=== PATIENT | male | born 1960 | race Caucasian/White ===

== ENCOUNTER → 2019-05-06 08:05 | Outpatient (CLI) | payer OTHER, SELFPAY ==
[2019-05-06 07:30] VITALS: BMI 38.9
--- NOTE | 2019-05-06 08:05 | LES_PTH ---
PATIENT: ARON GILMORE LOC: [facility] U#:[id number] AGE/SX: 64/M ROOM: RE05/06/[address]: Dr. Kendall Cao MD : 1960 BED: DIS: SPEC #: [id number] RECD: 05/08/19 07:45 STATUS: AYLA GRISELDA #: [id number] OLAMIDE: 05/06/19 08:[address]: Kendall Cao DEPT: SURGICAL PATHOLOGY RECD BY: Alex Meyer ENTERED: 05/08/19 09:31 SP TYPE: Lesion OTHR DR: Dr. Etienne Kebede III, MD Tissues: Skin of head, NOS Procedures: Surgery Specimen Level IV HEADER OPERATION: Excision skin lesion left temporal region PRE-OP DIAGNOSIS: Skin lesion TISSUE SUBMITTED: Skin lesion left temporal region MICROSCOPIC DIAGNOSIS Skin lesion left temporal region, excisional biopsy: Basal cell carcinoma, nodular type, with focal ulceration and associated inflammation (0.6 cm in greatest dimension), completely excised in the planes of sections examined. Solar elastosis. CELSO:kelvin 05/09/19 COMMENT Case has been reviewed in consultation with Dr. Anderson who concurs with the above diagnosis. IDC:AM MICROSCOPIC DESCRIPTION Slides are reviewed. GROSS DESCRIPTION Received in fixative is one container labeled with the patient's name and designated skin lesion left temporal region. The specimen consists of a arriaga-white skin ellipse measuring 1.5 x 0.8 cm and up to 0.3 cm in thickness. The specimen is inked, serially sectioned and submitted entirely in one cassette. / CELSO:kelvin 05/08/19 TC:0 CPT: 56609
== END ==
PROVIDERS: Family Provider Family Medicine; PCP Family Medicine; Referring Provider Surgery; Visit Provider Surgery
DX: L98.8 Other specified disorders of the skin and subcutaneous tissue (principal)
CPT/HCPCS: 88305

== ENCOUNTER 2022-02-01 11:41 | Inpatient (IN) | payer OTHER, SELFPAY ==
[2022-02-01] VITALS (12 sets, daily range): BP systolic 126–181; BP diastolic 72–106; PULSE 67–96; RESP 14–24; TEMP 36.2–37.9; O2SAT 93–95; BMI 40.1; BMI 39.2
--- NOTE | 2022-02-01 11:49 | RAD_ITS ---
EXAM: XR CHEST, 1 VIEW CLINICAL INDICATION: Neuro deficit, acute, stroke suspected TECHNIQUE: Frontal view of the chest. This report was created using [employer] report generation technology. COMPARISON: None. FINDINGS: LUNGS AND PLEURAL SPACES: Normal. No consolidation or edema. No pneumothorax. No effusion. HEART: Normal heart size. MEDIASTINUM: Central airways and mediastinal contour are unremarkable. BONES/JOINTS: Normal. SOFT TISSUES: Normal. RAD/Chest 1 View IMPRESSION: No acute cardiopulmonary disease. Electronically Signed: Jose Maria Shields MD at 14:14 EDT ,
--- NOTE | 2022-02-01 11:49 | CT_ITS ---
We are attempting to reach an attending provider to discuss findings. An addendum with communication details will be sent when the communication is complete. EXAM: CT HEAD WITHOUT INTRAVENOUS CONTRAST CLINICAL INDICATION: Neuro deficit, acute, stroke suspected TECHNIQUE: Multiple axial images were obtained of the head without intravenous contrast. This CT exam was performed using one or more of the following dose reduction techniques: automated exposure control, adjustment of the mA and/or kV according to patient size, and/or use of iterative reconstruction technique. This report was created using [employer] report [employer] technology. COMPARISON: None. FINDINGS: BRAIN AND EXTRA-AXIAL SPACES: Normal. No intra- or extra-axial hemorrhage. No evidence of acute infarct. No intracranial mass or mass effect. There is preservation of the [place]/white matter interface. Posterior fossa structures are unremarkable. Ventricles are appropriate for age. No hydrocephalus. Basal cisterns are patent. BONES/JOINTS: Normal. No discrete lytic or blastic abnormalities. SINUSES: Mucosal thickening of the paranasal sinuses noted. MASTOID AIR CELLS: Normal. Clear. ORBITS: Visualized globes, extraocular muscles, optic nerves and retrobulbar fat appear unremarkable. CT/STROKE Brain/Head without Cont IMPRESSION: No acute intracranial abnormality. Aspect score 10 Electronically Signed: Jose Maria Shields MD at 12:02 EDT ,
--- NOTE | 2022-02-01 11:49 | CT_ITS ---
EXAM: CT ANGIOGRAPHY HEAD AND NECK WITH INTRAVENOUS CONTRAST CLINICAL INDICATION: Neuro deficit, acute, stroke suspected TECHNIQUE: [place]/head and neck CT angiography protocol performed with intravenous contrast. This CT exam was performed using one or more of the following dose reduction techniques: automated exposure control, adjustment of the mA and/or kV according to patient size, and/or use of iterative reconstruction technique. This report was created using [employer] report generation technology. MIP reconstructed images were created and reviewed. CONTRAST: IV 100mL [id number] COMPARISON: None. FINDINGS: HEAD: RIGHT ANTERIOR CEREBRAL ARTERY: Normal. No significant stenosis at the visualized segments. Anterior communicating artery is present. No aneurysm. RIGHT MIDDLE CEREBRAL ARTERY: Normal. No significant stenosis at the visualized segments. No aneurysm. RIGHT POSTERIOR CEREBRAL ARTERY: Normal. No occlusion or significant stenosis. No aneurysm. RIGHT INTRACRANIAL INTERNAL CAROTID ARTERY: Normal. No significant stenosis. No dissection or occlusion. RIGHT INTRACRANIAL VERTEBRAL ARTERY: Normal. No significant stenosis. No dissection or occlusion. LEFT ANTERIOR CEREBRAL ARTERY: Normal. No significant stenosis at the visualized segments. No aneurysm. LEFT MIDDLE CEREBRAL ARTERY: Normal. No significant stenosis at the visualized segments. No aneurysm. LEFT POSTERIOR CEREBRAL ARTERY: Normal. No occlusion or significant stenosis. No aneurysm. LEFT INTRACRANIAL INTERNAL CAROTID ARTERY: Normal. No significant stenosis. No dissection or occlusion. LEFT INTRACRANIAL VERTEBRAL ARTERY: Normal. No significant stenosis. No dissection or occlusion. BASILAR ARTERY: Normal. No significant stenosis. No aneurysm. OTHER VASCULATURE: No vascular malformation. NECK: RIGHT COMMON CAROTID ARTERY: Normal. No significant stenosis. No dissection or occlusion. RIGHT EXTRACRANIAL INTERNAL CAROTID ARTERY: Normal. No significant stenosis. No dissection or occlusion. RIGHT EXTERNAL CAROTID ARTERY: Normal. No occlusion. RIGHT EXTRACRANIAL VERTEBRAL ARTERY: Normal. No significant stenosis. No dissection or occlusion. LEFT COMMON CAROTID ARTERY: Normal. No significant stenosis. No dissection or occlusion. LEFT EXTRACRANIAL INTERNAL CAROTID ARTERY: Normal. No significant stenosis. No dissection or occlusion. LEFT EXTERNAL CAROTID ARTERY: Normal. No occlusion. LEFT EXTRACRANIAL VERTEBRAL ARTERY: Normal. No significant stenosis. No dissection or occlusion. GREAT VESSELS OF AORTIC ARCH: Unremarkable as visualized. Normal anatomy, patent. LUNG APICES: Unremarkable as visualized. HEAD and NECK: BONES/JOINTS: Normal. No discrete lytic or blastic abnormalities. SOFT TISSUES: Normal. CAROTID STENOSIS REFERENCE USING NASCET CRITERIA: % ICA stenosis = (1 - narrowest ICA diameter/diameter of distal cervical ICA) x 100. Mild - <50% stenosis. Moderate - 50-69% stenosis. Severe - 70-94% stenosis. Near occlusion - 95-99% stenosis. Occluded - 100% stenosis. CT/STROKE CTA Head AND Neck W/Con IMPRESSION: Negative CTA carotid and CTA brain. N.B. : The above Results were Read Back by Jose Maria Shields MD to Alex Cortes DO, DO, and understanding confirmed on 02/01/2022 12:18:06 (ET). Electronically Signed: Jose Maria Shields MD at 12:18 EDT ,
--- NOTE | 2022-02-01 11:49 | EKG12_ITS ---
Test Reason : stroke Blood Pressure : / mmHG Vent. Rate : 094 BPM Atrial Rate : 094 BPM P-R Int : 116 ms QRS Dur : 094 ms QT Int : 358 ms P-R-T Axes : 038 -63 049 degrees QTc Int : 447 ms Normal sinus rhythm Left anterior fascicular block Abnormal ECG Confirmed by GISELLE BELTRE, ROBERT ([id number]), assistant film editor ALEIDA HERNANDEZ ([id number]) on 02/03/2022 9:09:49 AM Referred By: Confirmed By:ROBERT DESAI MD
--- NOTE | 2022-02-01 11:50 | EDS_ITS ---
HPI History of Present Illness Chief Complaint: Neuro S/Sx Detail of Chief Complaint: Blurred vision and feeling off balance Informant: patient Narrative Narrative: Patient presents to the emergency department with complaint of not feeling well since he woke up at 8 AM. Patient states that he woke up and his vision was blurry. Patient also feels off balance. He denies headache. He went to bed feeling fine. Patient states he can see clearly with each eye individually but when he looks with both eyes it is blurry. Patient has never had symptoms like this before. He denies recent illness. He does have history of hypertension. Patient denies weakness in extremities. He denies paresthesias. He denies chest pain. He denies difficulty with speech. Prior similar symptoms: No PFSH PFSH Medical History (Updated 02/01/22 @ 14:[address] Alex Cortes DO) Acid reflux Back problem Basal cell carcinoma Hypertension Skin lesion Home Medications amlodipine 10 mg tablet 10 mg PO DAILY #90 tabs 04/28/19 [History Last Taken Unknown] aspirin 81 mg tablet,delayed release (Adult Low Dose Aspirin) 81 mg PO DAILY 04/28/19 [History Last Taken Unknown] hydrochlorothiazide 12.5 mg capsule 12.5 mg PO DAILY #90 caps 04/28/19 [History Last Taken Unknown] metoprolol succinate 100 mg tablet,extended release 24 hr 100 mg PO DAILY #90 tabs 04/28/19 [History Last Taken Unknown] multivitamin 1 tab PO DAILY 04/28/19 [History Last Taken Unknown] omeprazole 20 mg capsule,delayed release 20 mg PO DAILY #90 caps 04/28/19 [History Last Taken Unknown] Allergy/AdvReac Type Severity Reaction Status Date / Time lisinopril AdvReac Mild Unknown Verified 05/12/19 08:17 clonazepam [From Klonopin] AdvReac Other Verified 02/01/22 11:46 Family History Mother Breast cancer Brother Testicular cancer Father Diabetes Hypertension Surgical History Hx of basal cell carcinoma excision Hx of cholecystectomy Hx of colonoscopy Hx of melanoma excision Hx of squamous cell carcinoma excision Social History (Updated 05/26/19 @ 11:[address] Kendall Cao MD) Smoking Status: Former smoker second hand exposure: No alcohol intake: never substance use type: does not use caffeine: Yes what type of physical activity do you participate in: none frequency: does not exercise ROS ROS ED Review of Systems ROS Unobtainable: other Constitutional Constitutional ED: Reports lethargy; Denies chills, fever(s), sweats or weight loss Eyes Eyes: Reports blurry vision and change in vision; Denies diplopia ENT ENT ED: Denies rhinorrhea or sore throat Cardiovascular Cardiovascular: Reports chest pain and racing heartbeat; Denies orthopnea Respiratory/Chest Respiratory/Chest: Reports dyspnea and dyspnea on exertion; Denies cough, orthopnea or sputum Gastrointestinal Gastrointestinal: Denies abdominal pain, diarrhea, nausea or vomiting Genitourinary Genitourinary ED: Denies dysuria, hematuria or urinary frequency Musculoskeletal Musculoskeletal: Denies arthralgias, back pain, myalgias or neck pain Integumentary Denies abscess, Abrasions or rash Neurologic Neurologic: Reports other Details: Feeling off balance ; Denies headache(s) or weakness Psychiatric Psychiatric: Denies anxiety, depression or suicidal thoughts Endocrine Endocrinology: Denies polydipsia, polyphagia or polyuria Hematologic/Lymphatic Hematologic/Lymphatic: Denies easy bleeding, easy bruising or lymphadenopathy Allergic/Immunologic Allergic/Immunologic ED: Denies mouth swelling, tongue swelling or urticaria EXAM Physical Exam Const Vital Signs: 02/01/22 11:42 02/01/22 11:53 02/01/22 11:49 Temperature 99.1 F 100.2 F H Temperature Source Oral Oral Pulse Rate 96 88 Respiratory Rate 23 H 23 H Blood Pressure 181/105 H 171/87 H Blood Pressure Mean 130 115 Pulse Ox 95 93 Oxygen Delivery Method Room Air Room Air Room Air 02/01/22 12:19 02/01/22 12:42 02/01/22 14:06 Temperature 100.3 F H 100.1 F H Temperature Source Oral Oral Pulse Rate 90 79 67 Respiratory Rate 24 H 18 14 Blood Pressure 170/92 H 126/106 H 153/82 H Blood Pressure Mean 118 112 105 Pulse Ox 95 93 94 Oxygen Delivery Method Room Air Room Air Room Air Positive well nourished and well developed General Appearance ED: well developed and NAD HEENT Reports TM's clear and moist mucous membranes normocephalic and atraumatic; Negative for trauma or tenderness Tympanic Membrane ED: Yes TM's clear Eyes PERRL and EOMs intact bilaterally Eyes Narrative: Mild droop of his right upper eyelid which is chronic. General Eye ED: Negative for pale conjunctiva or scleral icterus Neck no lymphadenopathy, supple and no JVD General: Negative for tenderness Chest Wall inspection of chest normal and palpation of chest normal Chest: Negative for tenderness Resp normal respiratory effort and clear to auscultation bilaterally Effort and Inspection: Negative for respiratory distress or pain with movement Auscultation: Negative for rhonchi, wheezes or diminished lung sounds Cardio regular rate, regular rhythm, S1 normal heart sound, S2 normal heart sound and no murmurs Peripheral Pulses: pulses 2+ throughout GI normal to inspection, nondistended, normoactive bowel sounds, soft to palpation, non-tender, non-distended and no masses Back/Spine no CVA tenderness and no thoracic nor lumbar tenderness Extremity normal to inspection General Extremety ED: Negative for edema General Extremity: Negative for edema Neuro oriented x3, CN's II-XII intact bilaterally, no sensory deficits noted and gait normal Neuro Narrative: No focal deficits noted on exam. He has normal strength and sensation. NIH stroke scale is a 0. Sensorium / Orientation: awake, alert, oriented to person, oriented to place and oriented to time Motor Exam: strength 5/5 throughout and strength abnormal Psych mental status grossly normal Skin no rashes or lesions noted and no wounds STROKE Vital Signs/Narrative: Vital Signs Temp Pulse Resp BP Pulse Ox O2 Del Method 02/01/22 14:06 100.1 F H 67 14 153/82 H 94 Room Air 02/01/22 12:42 79 18 126/106 H 93 Room Air 02/01/22 12:19 100.3 F H 90 24 H 170/92 H 95 Room Air 02/01/22 11:49 100.2 F H 88 23 H 171/87 H 93 Room Air 02/01/22 11:53 Room Air 02/01/22 11:42 99.1 F 96 23 H 181/105 H 95 Room Air MDM MDM MDM Narrative Medical decision making narrative: IV line established on arrival. A stroke team was called on arrival. Patient was evaluated by stroke neurologist. Stroke neurologist felt patient may have a 6 cranial nerve palsy. It was recommended to admit for an MRI. On arrival he also was noted to have a low-grade temperature and patient was found to be positive for COVID-19. Patient has not had any symptoms otherwise of COVID-19. Patient is not a thrombolytic candidate as he woke up with symptoms this morning. Case discussed with hospitalist will evaluate patient for admission Lab Data Attestation: I reviewed the patient's lab results. Labs: Laboratory Results - last 24 hr 02/01/22 02/01/22 02/01/22 11:46 11:46 11:46 WBC 6.3 RBC 5.19 Hgb 15.6 Hct 47.1 MCV 90.8 MCH 30.1 MCHC 33.1 RDW Std Deviation 44.8 H RDW Coeff of [place] 13.3 Plt Count 282 MPV 10.2 Immature Gran % (Auto) 0.300 Neut % (Auto) 55.1 Lymph % (Auto) 20.4 [place] % (Auto) 23.1 H Eos % (Auto) 0.3 Baso % (Auto) 0.8 Absolute Neuts (auto) 3.5 Absolute Lymphs (auto) 1.29 Nucleated RBC % 0 PT 13.0 INR 1.0 APTT 35.4 Sodium 135 L Potassium 3.7 Chloride 100 Carbon Dioxide 29.0 Anion Gap 6 BUN 15 Creatinine 1.02 Estim Creat Clear Calc 83.47 Est GFR (MDRD) Af Amer 95 Est GFR (MDRD) Non-Af 79 BUN/Creatinine Ratio 14.7 Glucose 101 Calcium 9.1 Troponin I High Sens 6 Urine Color Urine Clarity Urine pH Ur Specific [place] Urine Protein Urine Glucose (UA) Urine Ketones Urine Occult Blood Urine Nitrite Urine Bilirubin Urine Urobilinogen Ur Leukocyte Esterase Urine RBC Urine WBC Ur Squamous Epith Cells Urine Bacteria Urine Mucus 02/01/22 13:18 WBC RBC Hgb Hct MCV MCH MCHC RDW Std Deviation RDW Coeff of [place] Plt Count MPV Immature Gran % (Auto) Neut % (Auto) Lymph % (Auto) [place] % (Auto) Eos % (Auto) Baso % (Auto) Absolute Neuts (auto) Absolute Lymphs (auto) Nucleated RBC % PT INR APTT Sodium Potassium Chloride Carbon Dioxide Anion Gap BUN Creatinine Estim Creat Clear Calc Est GFR (MDRD) Af Amer Est GFR (MDRD) Non-Af BUN/Creatinine Ratio Glucose Calcium Troponin I High Sens Urine Color Yellow Urine Clarity Clear Urine pH 6.5 Ur Specific [place] 1.010 Urine Protein Negative Urine Glucose (UA) Normal Urine Ketones Negative Urine Occult Blood 25 H Urine Nitrite Negative Urine Bilirubin Negative Urine Urobilinogen Normal Ur Leukocyte Esterase Negative Urine RBC 0 SEEN Urine WBC 0 SEEN Ur Squamous Epith Cells 0 SEEN Urine Bacteria 0 SEEN Urine Mucus 0 SEEN Radiography Diagnostic Testing: Clinical Impression(s) from Imaging Studies Brain CT 02/01/22 11:49 IMPRESSION: No acute intracranial abnormality. Aspect score 10 Electronically Signed: Jose Maria Shields MD at 12:02 EDT , ADDENDUM: 02/01/22 1211 IMPRESSION: No acute intracranial abnormality. Aspect score 10 N.B. : The above Results were Read Back by Jose Maria Shields MD to Alex Cortes, , DO, and understanding confirmed on 02/01/2022 12:04:25 (ET). Electronically Signed: Jose Maria Shields MD at 12:02 EDT , Chest X-Ray 02/01/22 11:49 IMPRESSION: No acute cardiopulmonary disease. Electronically Signed: Jose Maria Shields MD at 14:14 EDT , Head/Neck CTA 02/01/22 11:49 IMPRESSION: Negative CTA carotid and CTA brain. N.B. : The above Results were Read Back by Jose Maria Shields MD to Alex Cortes, DO, DO, and understanding confirmed on 02/01/2022 12:18:06 (ET). Electronically Signed: Jose Maria Shields MD at 12:18 EDT , ADDENDUM: 02/01/22 1225 IMPRESSION: Negative CTA carotid and CTA brain. N.B. : The above Results were Read Back by Jose Maria Shields MD to Alex Cortes DO, DO, and understanding confirmed on 02/01/2022 12:18:06 (ET). Electronically Signed: Jose Maria Shields MD at 12:18 EDT , 1 view chest x-ray obtained interpreted by myself no acute disease process. Rad iology in agreement. EKG Initial EKG: Attestation: I personally reviewed and interpreted this EKG as follows: Comments: Sinus rhythm with a ventricular rate of 94 bpm with left anterior fascicular block Discharge Plan Triage Chief Complaint: Neuro S/Sx ED Provider: Alex Cortes Dx/Rx/DC Orders Clinical Impression: Acute CVA (cerebrovascular accident), Hypertension, Blurred vision, COVID-19 Prescriptions: No Action amlodipine 10 mg tablet 10 mg PO DAILY Qty: 90 Label Comments: TAKE 1 TABLET BY MOUTH ONCE DAILY hydrochlorothiazide 12.5 mg capsule 12.5 mg PO DAILY Qty: 90 Label Comments: TAKE 1 CAPSULE BY MOUTH ONCE DAILY metoprolol succinate 100 mg tablet extended release 24 hr 100 mg PO DAILY Qty: 90 omeprazole 20 mg capsule,delayed release(DR/EC) 20 mg PO DAILY Qty: 90 Label Comments: TAKE 1 CAPSULE BY MOUTH ONCE DAILY multivitamin Tablet 1 tab PO DAILY aspirin [Adult Low Dose Aspirin] 81 mg tablet,delayed release (DR/EC) 81 mg PO DAILY Primary Care Provider: Eric Bobby Referrals: Eric Bobby MD [Primary Care Provider] - Disposition Disposition: Acute Care [facility]
[2022-02-01 13:19] LABS: Bacteria 0 SEEN /hpf (None Seen); Mucous, Urine 0 SEEN /hpf (<or=2+); Red Blood Cells-Urine 0 SEEN /hpf (0-5); Squamous Epithelial Cells - UA 0 SEEN /hpf (0-5); White Blood Cells 0 SEEN /hpf (0-5)
[2022-02-01 13:21] LABS: Color, Urine Yellow (Yellow); Glucose, Dipstick Normal (Normal); Ketone-Dipstick Negative (Negative); Leukocyte Esterase-Dipstick Negative /ul (Negative); Nitrite-Dipstick Negative (Negative); Occult Blood-Urine 25 /ul (Negative); Protein-Dipstick Negative (Negative); Urine Bilirubin Dipstick Negative (Negative); Urine Clarity Clear (Clear); Urine Urobilinogen Normal (Normal); Urine pH 6.5 (5.0 - 8.0)
[2022-02-01 13:25] LABS: Absolute Lymphocyte Count 1.29 X10^3/uL (0.83-4.51); Absolute Neutrophil Count 3.5 X10^3/uL (2.0-7.7); Basophil# 0.05 X10^3/uL; Basophil% 0.8 % (0-1); Eosinophil# 0.02 X10^3/uL; Eosinophils% 0.3 % (0-5); Hematocrit 47.1 % (40-54); Hemoglobin 15.6 g/dL (13.0-16.5); Lymphocyte # 1.29 X10^3/ul (0.83-4.51); Lymphocyte % 20.4 % (19-41); Mean Corp Hgb Conc 33.1 g/dL (32-36); Mean Corpuscular Hgb 30.1 pg (27.0-32.0); Mean Corpuscular Volume 90.8 fL (80-94); Mean Platelet Vol. 10.2 fl (6.2-12.0); Monocyte# 1.46 X10^3/uL; Monocyte% 23.1 % (0-10); NRBC Flagged by Analyzer 0 % (0-5); Neutrophil # 3.48 X10^3/uL (2.7-7.7); Neutrophil % 55.1 % (47-70); Platelet Count 282 K/mm3 (150-450); RBC Distribution Width CV 13.3 % (11.6-14.6); RBC Distribution Width SD 44.8 fl (35.1-43.9); Red Blood Count 5.19 M/mm3 (4.6-6.2); White Blood Count 6.3 K/mm3 (4.4-11.0)
[2022-02-01 13:36] LABS: Partial Thromboplast Time 35.4 Seconds (24.1-36.2)
[2022-02-01 13:42] LABS: Anion Gap 6 (5-15); BUN 15 mg/dL (7-18); BUN/Creat Ratio 14.7 RATIO (10-20); Calcium,Total 9.1 mg/dL (8.5-10.1); Chloride 100 mmol/L (98-107); Creatinine, Serum 1.02 mg/dL (0.70-1.30); EST Glomerular Filtration Rate 79 mL/min (>60); Est Glom Filt Rate - Afr Amer 95 mL/min (>60); Estimated Creatinine Clearance 83.47 ml/min; Glucose 101 mg/dL (74-106); Potassium 3.7 mmol/L (3.5-5.1); Sodium Level 135 mmol/L (136-145); Troponin-I HS 6 pg/mL (3.0-78.0)
--- NOTE | 2022-02-01 14:32 | PCM.HP.STD ---
HPI - General General Date of Admission: 02/01/22 Date of Service: 02/01/22 Chief Complaint: Dizziness, fever - 1 day HPI Narrative ARON GILMORE, is a 61 M who presents with the above. He has past medical history of hypertension, history of basal cell carcinoma, borderline diabetes who comes in with dizziness and not feeling well since he woke up this morning. He was last well the night before. He said his vision was blurry and he felt his gaze was off balance. He went to the urgent care and was referred to the emergency room. In the emergency room, stroke alert was called. [facility]rology was consulted and felt that he had a left C8 nerve palsy, felt second to microvascular injury of from a pontine stroke. He was recommended to be admitted. He felt that his symptoms had improved at a time of being seen. He is able to see out of both eyes. He denied any weakness or numbness in any of his extremities. His blood pressure on admission was 181/105, heart rate 96, respiratory 23, temperature 99.1 F, T-max was 100 point 3F. SPO2 was 95% on room air. His WBC count was 6.3, hemoglobin was 15.6, platelet count 282. Sodium is 135, potassium 3.7, chloride is 100, bicarbonate 29, BUN is 15, creatinine is 1.02, troponin is 6. Blood glucose is 101. UA is unremarkable. Rapid COVID-19 test was positive. Admitting CT of the brain was unremarkable. Chest x-ray showed no acute cardiopulmonary process. CTA of the head and neck was unremarkable [facility] Medical History Acid reflux Back problem Basal cell carcinoma Hypertension Skin lesion Home Medications amlodipine 10 mg tablet 10 mg PO DAILY #90 tabs 04/28/19 [History Last Taken Unknown] aspirin 81 mg tablet,delayed release (Adult Low Dose Aspirin) 81 mg PO DAILY 04/28/19 [History Last Taken Unknown] hydrochlorothiazide 12.5 mg capsule 12.5 mg PO DAILY #90 caps 04/28/19 [History Last Taken Unknown] metoprolol succinate 100 mg tablet,extended release 24 hr 100 mg PO DAILY #90 tabs 04/28/19 [History Last Taken Unknown] multivitamin 1 tab PO DAILY 04/28/19 [History Last Taken Unknown] omeprazole 20 mg capsule,delayed release 20 mg PO DAILY #90 caps 04/28/19 [History Last Taken Unknown] Allergy/AdvReac Type Severity Reaction Status Date / Time lisinopril AdvReac Mild Unknown Verified 05/12/19 08:17 clonazepam [From Klonopin] AdvReac Other Verified 02/01/22 11:46 Family History Mother Breast cancer Brother Testicular cancer Father Diabetes Hypertension Surgical History Hx of basal cell carcinoma excision Hx of cholecystectomy Hx of colonoscopy Hx of melanoma excision Hx of squamous cell carcinoma excision Social History Smoking Status: Former smoker second hand exposure: No alcohol intake: never substance use type: does not use caffeine: Yes what type of physical activity do you participate in: none frequency: does not exercise ROS ROS Narrative Constitutional: Reports: Malaise, Weakness, Fatigue. Denies: Anorexia, Chills, Fever, Night Sweats, Weight Change Eyes: Denies: Blurred vision, Cataracts, Conjunctivae Inflammation, Pain, Redness, Vision Change HEENT: Denies: Difficulty Hearing, Difficulty Swallowing, Head Aches, Hearing Changes, Sinus Congestion, Sinus Drainage Cardiovascular: Denies: Chest Pain, Orthopnea, Palpitations Respiratory: Denies: Cough, Shortness of breath at rest, Sputum production Gastrointestinal: Denies: Abdominal Pain, Nausea, Vomiting Genitourinary: Denies: Dysuria Musculoskeletal: Denies: Joint Pain, Joint stiffness, Joint swelling, Joint Tenderness Skin: Denies: Rash, Wounds Neurological: See HPI Vital Signs Vital Signs Vital Signs: 02/01/22 11:42 02/01/22 11:53 02/01/22 11:49 Temperature 99.1 F 100.2 F H Temperature Source Oral Oral Pulse Rate 96 88 Respiratory Rate 23 H 23 H Blood Pressure 181/105 H 171/87 H Blood Pressure Mean 130 115 Pulse Ox 95 93 Oxygen Delivery Method Room Air Room Air Room Air 02/01/22 12:19 02/01/22 12:42 02/01/22 14:06 Temperature 100.3 F H 100.1 F H Temperature Source Oral Oral Pulse Rate 90 79 67 Respiratory Rate 24 H 18 14 Blood Pressure 170/92 H 126/106 H 153/82 H Blood Pressure Mean 118 112 105 Pulse Ox 95 93 94 Oxygen Delivery Method Room Air Room Air Room Air 02/01/22 14:30 Temperature 100.3 F H Temperature Source Oral Pulse Rate 67 Respiratory Rate 18 Blood Pressure 153/82 H Blood Pressure Mean 105 Pulse Ox 94 Oxygen Delivery Method Room Air Weight Weight: 134.1 kg Body Mass Index (BMI) 40.1 Physical Exam Narrative Physical exam: General: Alert, Oriented x3, cooperative, obese HEENT: Atraumatic Oral: Moist Mucosa Neck: Supple Lungs: Clear to auscultation Cardiovascular: HS I+II, regular, no murmurs Abdomen: Bowel Sounds Present, Soft, Non Tender Extremities: No edema Skin: No rashes, No breakdown Neurological: Grossly intact except for slight right upper eyelid ptosis, power is 5/5 in all 4 limbs, normal tone Psych/Mental Status: Appropriate Results Lab / Micro Data Result Diagrams: 02/01/22 11:46 02/01/22 11:46 Labs: Laboratory Results - last 24 hr 02/01/22 11:46: WBC 6.3, RBC 5.19, Hgb 15.6, Hct 47.1, MCV 90.8, MCH 30.1, MCHC 33.1, RDW Std Deviation 44.8 H, RDW Coeff of [place] 13.3, Plt Count 282, MPV 10.2, Immature Gran % (Auto) 0.300, Neut % (Auto) 55.1, Lymph % (Auto) 20.4, [place] % (Auto) 23.1 H, Eos % (Auto) 0.3, Baso % (Auto) 0.8, Absolute Neuts (auto) 3.5, Absolute Lymphs (auto) 1.29, Nucleated RBC % 0 02/01/22 11:46: PT 13.0, INR 1.0, APTT 35.4 02/01/22 11:46: Sodium 135 L, Potassium 3.7, Chloride 100, Carbon Dioxide 29.0, Anion Gap 6, BUN 15, Creatinine 1.02, Estim Creat Clear Calc 83.47, Est GFR (MDRD) Af Amer 95, Est GFR (MDRD) Non-Af 79, BUN/Creatinine Ratio 14.7, Glucose 101, Calcium 9.1, Troponin I High Sens 6 02/01/22 13:18: Urine Color Yellow, Urine Clarity Clear, Urine pH 6.5, Ur Specific [place] 1.010, Urine Protein Negative, Urine Glucose (UA) Normal, Urine Ketones Negative, Urine Occult Blood 25 H, Urine Nitrite Negative, Urine Bilirubin Negative, Urine Urobilinogen Normal, Ur Leukocyte Esterase Negative, Urine RBC 0 SEEN, Urine WBC 0 SEEN, Ur Squamous Epith Cells 0 SEEN, Urine Bacteria 0 SEEN, Urine Mucus 0 SEEN Micro: Microbiology 02/01/22 12:04 Nasal Secretion SARS-CoV-2 & FLU Antigen (Rapid) - Final SARS-CoV-2 (COVID 19) Radiology Impression Brain CT 02/01/22 11:49 IMPRESSION: No acute intracranial abnormality. Aspect score 10 Electronically Signed: Jose Maria Shields MD at 12:02 EDT Reading Location ID and State: [facility] / [place] Tel , Service support , ADDENDUM: 02/01/22 1211 IMPRESSION: No acute intracranial abnormality. Aspect score 10 N.B. : The above Results were Read Back by Jose Maria Shields MD to Alex Cortes DO, DO, and understanding confirmed on 02/01/2022 12:04:25 (ET). Electronically Signed: Jose Maria Shields MD at 12:02 EDT Reading Location ID and State: [facility] / [place] Tel , Service support , Chest X-Ray 02/01/22 11:49 IMPRESSION: No acute cardiopulmonary disease. Electronically Signed: Jose Maria Shields MD at 14:14 EDT , Head/Neck CTA 02/01/22 11:49 IMPRESSION: Negative CTA carotid and CTA brain. N.B. : The above Results were Read Back by Jose Maria Shields MD to Ungur, Remus, DO, DO, and understanding confirmed on 02/01/2022 12:18:06 (ET). Electronically Signed: Jose Maria Shields MD at 12:18 EDT , ADDENDUM: 02/01/22 1225 IMPRESSION: Negative CTA carotid and CTA brain. N.B. : The above Results were Read Back by Jose Maria Shields MD to Ungur, Remus, DO, DO, and understanding confirmed on 02/01/2022 12:18:06 (ET). Electronically Signed: Jose Maria Shields MD at 12:18 EDT , Assessment & Plan Assessment/Plan (1) Acute CVA (cerebrovascular accident): PLAN: Plan 1. Acute onset of dizziness, likely secondary to TIA vs CVA Admit to PCU, stroke work-up, MRI of the brain, lipid profile, HbA1c, PT/OT/ST to evaluate and treat Consider SOC consult if MRI brain comes back positive 2. Acute COVID-19 infection without hypoxia, patient is vaccinated but has not received booster Chest x-ray shows no infiltrates Will start patient on remdesivir, will hold off dexamethasone until patient is hypoxic 3. Hypertension, uncontrolled but will allow for permissive hypertension Home hydrochlorothiazide, metoprolol on hold 4. Hyperlipidemia, continue on statin 5. GERD, continue on PPI 6. Morbidly obesity, BMI 40.1, lifestyle modification recommended 7. DVT prophylaxis?Lovenox subcu BID Charges/Coding Visit Charges OBSV E&M: 29978 Initial observation care L3
[2022-02-01] MEDS: 0.9% Normal Saline 1,000 ML 100 ML IV (16:27)
[2022-02-01] MEDS: 0.9% Saline Lock 10 ML Syringe IV (16:27)
[2022-02-01 17:25] LABS: Hemoglobin A1c 5.7 % (3.8-5.6)
[2022-02-01 17:30] LABS: Bedside Glucose 107 mg/dL (74-106)
[2022-02-01] MEDS: Enoxaparin 40 MG/0.4 ML Syringe SC (21:10)
[2022-02-01 21:41] LABS: Bedside Glucose 119 mg/dL (74-106)
[2022-02-02 01:26] VITALS: BMI 39.2
[2022-02-02 03:00] VITALS: PULSE 55
[2022-02-02 03:15] VITALS: BP 132/66; PULSE 64; RESP 16; TEMP 36.7; O2SAT 94
--- NOTE | 2022-02-02 06:00 | MRI_ITS ---
EXAM: MR HEAD WITHOUT INTRAVENOUS CONTRAST CLINICAL INDICATION: Neurological deficit. Unsteady gait. TECHNIQUE: Multiplanar and multisequence MR images of the brain were obtained without intravenous contrast. This report was created using [employer] report generation technology. COMPARISON: CT head without contrast and CTA head with contrast 02/01/2022. FINDINGS: BRAIN AND EXTRA-AXIAL SPACES: No diffusion restriction to suspect acute or subacute ischemic infarct. No focal signal abnormalities throughout the brain parenchyma in all of the pulse sequences. Normal ventricles and cisterns. No intra- or extra-axial hemorrhage. No intracranial mass or mass effect. Posterior fossa structures are unremarkable. SELLA: Unremarkable. Normal sella turcica, pituitary gland, infundibular stalk, optic chiasm and hypothalamus. AUDITORY SYSTEM: Unremarkable. The internal auditory canals are patent. BONES/JOINTS: Unremarkable. No discrete lytic or blastic abnormalities. SINUSES: Unremarkable as visualized. Clear. MASTOID AIR CELLS: Unremarkable as visualized. Clear. ORBITS: Unremarkable as visualized. Both globes, extraocular muscles, optic nerves and retrobulbar fat appear unremarkable. VASCULATURE: Unremarkable as visualized. Normal flow voids in the major intracranial circulation. MRI/Brain without Contrast IMPRESSION: Normal MRI brain without contrast. Electronically Signed: Eyal Hernandez MD at 11:11 EDT ,
[2022-02-02 06:25] VITALS: BP 136/83; PULSE 70; RESP 16; TEMP 36.1; O2SAT 95
[2022-02-02 06:34] LABS: Absolute Lymphocyte Count 1.36 X10^3/uL (0.83-4.51); Absolute Neutrophil Count 1.9 X10^3/uL (2.0-7.7); Basophil# 0.03 X10^3/uL; Basophil% 0.7 % (0-1); Eosinophil# 0.06 X10^3/uL; Eosinophils% 1.4 % (0-5); Hematocrit 43.7 % (40-54); Hemoglobin 14.6 g/dL (13.0-16.5); Lymphocyte # 1.36 X10^3/ul (0.83-4.51); Lymphocyte % 32.1 % (19-41); Mean Corp Hgb Conc 33.4 g/dL (32-36); Mean Corpuscular Hgb 30.2 pg (27.0-32.0); Mean Corpuscular Volume 90.3 fL (80-94); Mean Platelet Vol. 9.7 fl (6.2-12.0); Monocyte# 0.84 X10^3/uL; Monocyte% 19.8 % (0-10); NRBC Flagged by Analyzer 0 % (0-5); Neutrophil # 1.93 X10^3/uL (2.7-7.7); Neutrophil % 45.5 % (47-70); Platelet Count 228 K/mm3 (150-450); RBC Distribution Width CV 13.6 % (11.6-14.6); RBC Distribution Width SD 45.3 fl (35.1-43.9); Red Blood Count 4.84 M/mm3 (4.6-6.2); White Blood Count 4.2 K/mm3 (4.4-11.0)
[2022-02-02 06:40] VITALS: PULSE 62
[2022-02-02 06:58] LABS: ALB/GLOB Ratio 0.8 RATIO (0.9-2.4); AST(SGOT) 49 U/L (15-37); Alanine Aminotransfer ALT/SGPT 45 U/L (16-61); Albumin, Serum 3.1 g/dL (3.2-5.0); Alkaline Phosphatase 53 U/L (45-117); Anion Gap 5 (5-15); BUN 16 mg/dL (7-18); BUN/Creat Ratio 16.3 RATIO (10-20); Calcium,Total 8.5 mg/dL (8.5-10.1); Chloride 103 mmol/L (98-107); Cholesterol 102 mg/dL (200); Creatinine, Serum 0.98 mg/dL (0.70-1.30); EST Glomerular Filtration Rate 82 mL/min (>60); Est Glom Filt Rate - Afr Amer 100 mL/min (>60); Estimated Creatinine Clearance 86.88 ml/min; Globulin 3.9 g/dL (2.2-4.2); Glucose 102 mg/dL (74-106); High Density Lipoprotein 31 mg/dL; Magnesium 2.1 mg/dL (1.6-2.6); Potassium 3.8 mmol/L (3.5-5.1); Sodium Level 135 mmol/L (136-145); Triglycerides 59 mg/dL; Very Low Density Lipoprotein 12 mg/dL (5-40)
[2022-02-02 07:00] LABS: Bedside Glucose 113 mg/dL (74-106)
[2022-02-02] MEDS: Aspirin E.C. 81 MG Tablet PO (09:34)
[2022-02-02] MEDS: Multivitamins,Therapeutic Tablet 1 TABLET PO (09:34)
[2022-02-02 09:45] VITALS: BP 161/90; PULSE 87; RESP 18; TEMP 36.2; O2SAT 94
[2022-02-02] MEDS: Pantoprazole Sodium 20 MG Tablet PO (10:52)
[2022-02-02] MEDS: Enoxaparin 40 MG/0.4 ML Syringe SC (10:52)
[2022-02-02 11:11] VITALS: BP 161/90; PULSE 87
[2022-02-02] MEDS: Metoprolol(XL)Succ 100 MG Tablet PO (11:11)
[2022-02-02 11:26] LABS: Bedside Glucose 115 mg/dL (74-106)
--- NOTE | 2022-02-02 11:41 | CASEMGMT ---
RN SOFIYA called patient in room for initial transition planning/care coordination assessment. RN SOFIYA introduced self and role at [facility]. Patient is alert and oriented. Patient willing to participate in assessment and is able to answer all questions appropriately. Care providers, pharmacy, and demographics verified. Patient wishes to discharge home, denies need for home health at this time. Patient states he has no further needs or concerns at this time. CM to follow for discharge planning needs that may arise. PCP: [facility] Specialists: marina Tellez Preferred Pharmacy: [facility]; [facility] retail at discharge Insurance: [facility] Prescription Benefit: yes Living Will/HPOA: none LNOK: , daughter Living Arrangements: Patient lives with in a 2 story home. Patient states he is independent and able to ambulate stairs at home. Patient states that is getting tested today for covid. Patient states him and are able to self isolate at home if needed. Daughter is able to bring groceries and supplies if needed. Transportation: self, DME/HHC: Patient states he has shower chair, grab bars, cane, and walker at home. No previous HHC or SNF. Patient has no preferences for DME and would like [employer] if in-network with insurance. Will monitor for home oxygen at discharge. Disposition Plan: Patient to discharge home with family support and follow-up plans in place. Leidy CHRISTIANSON, RN, CM
--- NOTE | 2022-02-02 12:50 | DCINST_ITS ---
Discharge Instructions Diet Discharge Diet: No restrictions Activity Discharge Activity: Return to Normal Activity Additional Activity Instructions:: Quarantine for a total of seven days from the start of symptoms of COVID-19 Follow Up Care Test Results: Test results from this visit will be discussed in further detail at your follow- up appointment, if applicable. Discharge Plan Admission Admit Date/Time: 02/01/22 14:26 Primary Reason for Your Visit: COVID-19, blurred vision Attending Provider: Hiren Hale Primary Care Provider: Eric Bobby Consulting Providers: Sue Armando Instructions Additional Instructions / Restrictions: Follow up with your opthalmologist regarding your blurred vision Discharge Orders/Prescriptions Prescriptions: Continued amlodipine 10 mg tablet 10 mg PO DAILY Qty: 90 Label Comments: TAKE 1 TABLET BY MOUTH ONCE DAILY hydrochlorothiazide 12.5 mg capsule 12.5 mg PO DAILY Qty: 90 Label Comments: TAKE 1 CAPSULE BY MOUTH ONCE DAILY metoprolol succinate 100 mg tablet extended release 24 hr 100 mg PO DAILY Qty: 90 omeprazole 20 mg capsule,delayed release(DR/EC) 20 mg PO DAILY Qty: 90 Label Comments: TAKE 1 CAPSULE BY MOUTH ONCE DAILY multivitamin Tablet 1 tab PO DAILY Discontinued aspirin [Adult Low Dose Aspirin] 81 mg tablet,delayed release (DR/EC) 81 mg PO DAILY Referrals / Follow Up: Eric Bobby MD [Primary Care Provider] - See Referral Note (as scheduled) Disposition Disposition (needs filled in before D/C Order can be placed): Home, Self Care
--- NOTE | 2022-02-02 12:54 | CASEMGMT ---
SW did not complete a PHQ9 with patient as per physician patient did not have a Stroke or TIA. Ting JESSICA
--- NOTE | 2022-02-02 14:08 | PHA.DC.MR ---
Pharmacy Service has performed discharge medication reconciliation for this patient. The patient's discharge medication list was reviewed for discrepancies and discrepancies were resolved. Home Medications amlodipine 10 mg tablet 10 mg PO DAILY #90 tabs 04/28/19 hydrochlorothiazide 12.5 mg capsule 12.5 mg PO DAILY #90 caps 04/28/19 metoprolol succinate 100 mg tablet,extended release 24 hr 100 mg PO DAILY #90 tabs 04/28/19 multivitamin 1 tab PO DAILY 04/28/19 omeprazole 20 mg capsule,delayed release 20 mg PO DAILY #90 caps 04/28/19
--- NOTE | 2022-02-02 20:10 | DS.PCM_ITS ---
Providers Date of Admission: 02/01/22 Date of Discharge: 02/02/22 Primary Care Physician: Dr. Eric Bobby MD Reason For Visit: CVA, COVID-19, HTN, BLURRY VISION Diagnosis Discharge Diagnosis (1) Acute CVA (cerebrovascular accident): Status: Acute Code(s): I63.9 - Cerebral infarction, unspecified Plan 1. Dizziness-etiology unclear, patient was not felt to have had a TIA or CVA #2 COVID-19 infection without hypoxia #3 essential hypertension #4 hyperlipidemia #5 morbid obesity 6th nerve palsy was ruled out Medications at Discharge Home Medications amlodipine 10 mg tablet 10 mg PO DAILY #90 tabs 04/28/19 hydrochlorothiazide 12.5 mg capsule 12.5 mg PO DAILY #90 caps 04/28/19 metoprolol succinate 100 mg tablet,extended release 24 hr 100 mg PO DAILY #90 tabs 04/28/19 multivitamin 1 tab PO DAILY 04/28/19 omeprazole 20 mg capsule,delayed release 20 mg PO DAILY #90 caps 04/28/19 Hospital Course Operations None Procedures None Summary of Care Provided Minutes Spent on Discharge: 31 Hospital Course: This 61-year-old white male presented to the emergency room at [facility] with a complaint of blurred vision and dizziness. Patient denied any focal neurological deficits, stroke team was called on arrival, patient was evaluated by stroke neurologist, initially the neurologist felt that the patient may have had a 6 cranial nerve palsy, it was recommended the patient be admitted for an MRI, CT of the head showed no evidence of acute process, CTA of the head and neck showed no evidence of occlusive disease. Patient was not felt to be a candidate for tPA. Patient was admitted to PCU, MRI was obtained which showed no evidence of stroke, PT and OT saw the patient and the patient's symptoms resolved. On 02/02/2022, patient was seen and examined: On examination he appeared in good health and spirits. Vital signs as documented. Skin warm and dry and without overt rashes. Neck without JVD, neck was supple, trachea midline, thyroid was normal. Lungs clear bilaterally, normal air movement was noted. Heart exam notable for regular rhythm, normal sounds and absence of murmurs, rubs or gallops. Abdomen unremarkable and without evidence of organomegaly, masses, or abdominal aortic enlargement. Bowel sounds are present, abdomen is not distended. Extremities nonedematous, no cyanosis was noted, no clubbing was noted. Neuro: Cranial nerves II through XII are grossly intact, no focal motor deficits were noted, sensation to light touch and pinprick intact, motor exam 5/5 throughout. Psych: Patient is alert and oriented x3, he does not appear anxious or depressed, he does not appear agitated. On 02/02/2022, patient was felt to be stable for discharge home. Weight / BMI Weight Weight: 130.8 kg Body Mass Index (BMI) 39.2 ABG / Lab / Microbiology Data Result Diagrams: 02/02/22 06:24 02/02/22 06:24 Laboratory: Laboratory Results - last 24 hr 02/01/22 21:16: POC Glucose 119 H 02/02/22 06:23: POC Glucose 113 H 02/02/22 06:24: WBC 4.2 L, RBC 4.84, Hgb 14.6, Hct 43.7, MCV 90.3, MCH 30.2, MCHC 33.4, RDW Std Deviation 45.3 H, RDW Coeff of [place] 13.6, Plt Count 228, MPV 9.7, Immature Gran % (Auto) 0.500, Neut % (Auto) 45.5 L, Lymph % (Auto) 32.1, [place] % (Auto) 19.8 H, Eos % (Auto) 1.4, Baso % (Auto) 0.7, Absolute Neuts (auto) 1.9 L, Absolute Lymphs (auto) 1.36, Nucleated RBC % 0 02/02/22 06:24: Sodium 135 L, Potassium 3.8, Chloride 103, Carbon Dioxide 27.0, Anion Gap 5, BUN 16, Creatinine 0.98, Estim Creat Clear Calc 86.88, Est GFR (MDRD) Af Amer 100, Est GFR (MDRD) Non-Af 82, BUN/Creatinine Ratio 16.3, Glucose 102, Calcium 8.5, Phosphorus 4.0, Magnesium 2.1, Total Bilirubin 0.30, AST 49 H, ALT 45, Alkaline Phosphatase 53, Total Protein 7.0, Albumin 3.1 L, Globulin 3.9, Albumin/Globulin Ratio 0.8 L, Triglycerides 59, Cholesterol 102, LDL Cholesterol 59, VLDL Cholesterol 12, HDL Cholesterol 31 L 02/02/22 10:50: POC Glucose 115 H Microbiology: Microbiology 02/01/22 12:04 Nasal Secretion SARS-CoV-2 & FLU Antigen (Rapid) - Final SARS-CoV-2 (COVID 19) Radiography Diagnostic Testing: Radiology Impression Brain MRI 02/02/22 06:00 IMPRESSION: Normal MRI brain without contrast. Electronically Signed: Eyal Hernandez MD at 11:11 EDT Reading Location ID and State: [facility] / [place] , Service support , D/C Instructions Discharge Diet: No restrictions Additional Activity Instructions: Quarantine for a total of seven days from the start of symptoms of COVID-19 Meaningful Use Info Meaningful Use Diagnoses (Choose all that apply): None applicable Discharge Plan Admission Admit Date/Time: 02/01/22 14:26 Primary Reason for Your Visit: COVID-19, blurred vision Attending Provider: Hiren Hale Primary Care Provider: Eric Bobby Consulting Providers: Sue Armando Instructions Additional Instructions / Restrictions: Follow up with your opthalmologist regarding your blurred vision Discharge Orders/Prescriptions Prescriptions: Continued amlodipine 10 mg tablet 10 mg PO DAILY Qty: 90 Label Comments: TAKE 1 TABLET BY MOUTH ONCE DAILY hydrochlorothiazide 12.5 mg capsule 12.5 mg PO DAILY Qty: 90 Label Comments: TAKE 1 CAPSULE BY MOUTH ONCE DAILY metoprolol succinate 100 mg tablet extended release 24 hr 100 mg PO DAILY Qty: 90 omeprazole 20 mg capsule,delayed release(DR/EC) 20 mg PO DAILY Qty: 90 Label Comments: TAKE 1 CAPSULE BY MOUTH ONCE DAILY multivitamin Tablet 1 tab PO DAILY Discontinued aspirin [Adult Low Dose Aspirin] 81 mg tablet,delayed release (DR/EC) 81 mg PO DAILY Referrals / Follow Up: Eric Bobby MD [Primary Care Provider] - See Referral Note (as scheduled) Disposition Disposition (needs filled in before D/C Order can be placed): Home, Self Care Charges/Coding Visit Charges Inpatient E&M: 59570 Disch Hosp
[2022-02-04 11:11] LABS: Bedside Glucose 103 mg/dL (74-106)
== END 2022-02-02 14:34 | disposition home or self-care (01) | DRG 149 ==
LOC: ED 14:32 → PCU 19:33
PROVIDERS: Admitting Provider Internal Medicine; Emergency Provider Emergency Medicine; PCP Family Medicine; Visit Provider Internal Medicine
DX: R42 Dizziness and giddiness (principal); U07.1 COVID-19; Z68.41 Body mass index [BMI] 40.0-44.9, adult; E66.01 Morbid (severe) obesity due to excess calories; H53.8 Other visual disturbances; E78.5 Hyperlipidemia, unspecified; I10 Essential (primary) hypertension; K21.9 Gastro-esophageal reflux disease without esophagitis; R26.81 Unsteadiness on feet; Z79.899 Other long term (current) drug therapy; Z87.891 Personal history of nicotine dependence
CPT/HCPCS: 36415; 70450; 70496; 70498; 70551; 71045; 80048; 80053; 80061; 81001; 82962; 83036; 83735; 84100; 84484; 85025; 85610; 85730; 87040; 87428; 93005; 97802; 99284; J7030; J7050; Q9967; A4216; J0248

== ENCOUNTER 2025-03-05 13:15 | Emergency (ER) | payer OTHER, SELFPAY ==
[2025-03-05 13:17] VITALS: BP 150/89; PULSE 64; RESP 18; TEMP 36.8; O2SAT 98; BMI 37.8
== END 2025-03-05 15:45 | disposition left against medical advice (07) ==
LOC: ED 15:46
PROVIDERS: PCP Family Medicine
DX: S39.003A Unspecified injury of muscle, fascia and tendon of pelvis, initial encounter (principal); Z53.21 Procedure and treatment not carried out due to patient leaving prior to being seen by health care provider